=== PATIENT | male | born 1955 | race Caucasian/White ===

== ENCOUNTER 2016-10-10 07:23 | Day surgery (SDC) | payer OTHER ==
[~2016-10-10] VITALS: Ht 170.2 cm; Wt 69.2 kg
[2016-10-10 08:05] VITALS: Ht 170.2 cm; Wt 69.2 kg
[2016-10-10 08:53] VITALS: BP 121/74; PULSE 65; RESP 18
[2016-10-10] MEDS ORDERED: MIDAZOLAM 1 MG/ML 2 ML INJ ONE (09:42)
[2016-10-10] MEDS ORDERED: FENTAnyl 50 MCG/ML VIAL ONE (09:42)
[2016-10-10] MEDS ORDERED: ATROPINE 1 MG/10 ML SYRINGE ONE ×2 (09:43)
[2016-10-10 10:03] VITALS: BP 106/76; PULSE 80; RESP 15
--- NOTE | 2016-10-10 11:28 | GILP ---
DATE OF PROCEDURE: 10/10/2016 NAME OF PROCEDURES: Colonoscopy and biopsy. SURGEON: Reji Acharya MD PREOPERATIVE DIAGNOSES: Rectal bleeding. POSTOPERATIVE DIAGNOSES: 1. Colonoscopy all the way to the cecum. 2. Small rectal polyp was removed using the biopsy forceps. 3. Internal hemorrhoids. INDICATION FOR THE PROCEDURE: Mr. Nicho Omer is a 61-year-old male patient who had rectal bleed ing. He never had screening colonoscopy. The procedure and possible complications were well explained to the patient. The patient understood and consented to the procedure. DESCRIPTION OF PROCEDURE: Under the influence of fentanyl and Versed, the colonoscope was carefully introduced in the rectum and under direct vision, it was advanced all the way to the cecum. FINDINGS: The patient had a small rectal polyp and it was removed using the biopsy forceps. The pa tient was noted to have internal hemorrhoids. He tolerated the procedure very well and there was no complication from the procedure. At the end o f the procedure, he was awake with stable vital signs and he was discharged home to the care of his family. IMPRESSION: 1. Colonoscopy all the way to the cecum. 2. Small rectal polyp was removed using the biopsy forceps. 3. Internal hemorrhoids. PLAN: Anusol-HC 2.5% cream at bedtime p.r.n. Next screening colonoscopy in 10 years. Dictated By: REJI HELLER/CHAKA Conf#: [id number] DID#: [id number]
== END 2016-10-10 16:39 | disposition home or self-care (01) ==
LOC: GIL 07:23
PROVIDERS: ATTEND Internal Medicine Gastroenterology
DX: K62.1 Rectal polyp (principal); K64.8 Other hemorrhoids
CPT/HCPCS: 45380; 88305; J0461; J2250; J3010; Z7610